=== PATIENT | female | born 1965 | race Caucasian/White ===

== ENCOUNTER → 2018-08-29 09:22 | Outpatient (CLI) | payer BC ==
--- NOTE | 2018-09-03 18:38 | ST ---
PATIENT:JESÚS WOODY MEDICAL RECORD: [id number] SEX: F LOCATION:[facility] ORDER #: ADMISSION DATE: 08/29/18 AGE OF PATIENT: 53 REFERRING PHYSICIAN: INTERPRETING PHYSICIAN: MILANA ANTHONY MD DATE OF SERVICE: 08/30/2018 Stress Test INDICATIONS: Chest pain. PROCEDURE IN DETAIL: She was exercised under Kaden protocol for 5 minutes achieving greater than 85% max target heart rate response with no EKG changes, no dysrhythmias, no angina. OVERALL IMPRESSION: Negative for inducible ischemia at adequate cardiac workload. TRANSINT:[id number] Voice Confirmation ID: [id number] DOCUMENT ID: [id number] MILANA ANTHONY MD at 1838 CC: [id number] DICTATION DATE: 08/30/18 1534 CANDLE POURER: 08/30/18 2345 DEP CLI 08/29/18 [id number] [place] [address]
== END | disposition home or self-care (01) ==
LOC: D.HCCARDIO 09:22
PROVIDERS: ATTEND Internal Medicine Interventional Cardiology
DX: R00.2 Palpitations (principal)